=== PATIENT | male | born 1960 | race Caucasian/White ===

== ENCOUNTER 2017-01-10 10:42 | Observation (INO) | payer MEDICARE, MEDICAID, OTHER ==
[2017-01-10] MEDS ORDERED: Aspirin 81 MG Tab.Chew PO ONE (10:48)
[2017-01-10] MEDS ORDERED: Sodium Chloride 0.9% 10 ML Syringe FLUSH PRN (10:50)
[2017-01-10] MEDS: Nitroglycerin 0.4 MG Tab.SL SL PRN ×2 (10:59→11:09)
--- NOTE | 2017-01-10 11:16 | EDM.PDOC ---
ED HPI GENERAL MEDICAL PROBLEM - General Chief Complaint: Chest Pain Stated Complaint: chest pain Time Seen by Provider: 01/10/17 11:00 Source of Information: Reports: Patient History Limitations: Reports: No Limitations - History of Present Illness INITIAL COMMENTS - FREE TEXT/NARRATIVE: The patient presents with complaint of substernal chest pain to the left of midline that began at about 10:00 AM this morning. He reports it is aching and pressure-like and he rates it at 10/10 on arrival in the ER and states it radiates to the jaw as well. He denies shortness of breath, orthopnea, and pleuritic pain. He denies a history of NC, PE, and DVT. He is a smoker and has smoked 1/2 ppd for 30+ years (15+ pack-years). He denies other symptoms or complaints. Patient notes for the past few months he has been having chest pain about 3 times weekly similar to this but not as severe and has lasted from a few minutes to a few hours. Mid-Sternal Chest Pain Score (Numeric/FACES): 7 - Related Data Allergies Allergy/AdvReac Type Severity Reaction Status Date / Time No Known Allergies Allergy Verified 01/10/17 10:50 Home Meds: Home Meds Naproxen 1 tab PO DAILY 01/10/17 [History] Past Medical History Cardiovascular History: Reports: High Cholesterol, Hypertension Genitourinary History: Reports: Renal Calculus (x 3 on the left.) Endocrine/Metabolic History: Reports: Diabetes, Type II (Reports he had history of Type 2 Diabetes which he reports has resolved with diet and exercise.) Social & Family History - Tobacco Use Smoking Status *Q: Current Every Day Smoker Years of Tobacco use: 30 Packs/Tins Daily: 0.5 ED ROS GENERAL - Review of Systems Review Of Systems: ROS reveals no pertinent complaints other than HPI. ED EXAM, GENERAL - Physical Exam Exam: See Below Exam Limited By: No Limitations General Appearance: Alert, WD/WN, No Apparent Distress Eye Exam: Bilateral Eye: EOMI, Normal Fundi, Normal Inspection, PERRL Ears: Normal External Exam, Normal Canal, Hearing Grossly Normal, Normal TMs Ear Exam: Bilateral Ear: Auricle Normal, Canal Normal, TM normal Nose: Normal Inspection, Normal Mucosa, No Blood Throat/Mouth: Normal Inspection, Normal Lips, Normal Teeth, Normal Gums, Normal Oropharynx, Normal Voice, No Airway Compromise Head: Atraumatic, Normocephalic Neck: Normal Inspection, Supple, Non-Tender. No: Lymphadenopathy (L), Lymphadenopathy (R) Respiratory/Chest: No Respiratory Distress, Lungs Clear, Normal Breath Sounds, No Accessory Muscle Use, Chest Non-Tender Cardiovascular: Normal Peripheral Pulses, Regular Rate, Rhythm, No Edema, No Gallop, No Murmur, No Rub Peripheral Pulses: 2+: Radial (L), Radial (R), Posterior Tibial (L), Posterior Tibial (R), Dorsalis Pedis (L), Dorsalis Pedis (R) GI/Abdominal: Normal Bowel Sounds, Soft, Non-Tender, No Organomegaly, No Distention Back Exam: Normal Inspection, Full Range of Motion. No: CVA Tenderness (L), CVA Tenderness (R), Paraspinal Tenderness, Vertebral Tenderness Extremities: Normal Inspection, Normal Range of Motion, Non-Tender, No Pedal Edema, Normal Capillary Refill Neurological: Alert, Oriented, CN II-XII Intact, Normal Cognition, Normal Gait, Normal Reflexes, No Motor/Sensory Deficits Psychiatric: Normal Affect, Normal Mood Skin Exam: Warm, Dry, Intact, Normal Color, No Rash Lymphatic: No Adenopathy EKG INTERPRETATION EKG Date: 01/10/17 Time: 10:43 Rhythm: NSR Rate (beats/min): 84 [place]: normal P-wave: present QRS: normal ST-T: other (No ST elevation. T wave inversions in V1.) QT: normal Comparison: NA - no prior EKG Course - Vital Signs Last Recorded V/S: Last Vital Signs Temp 36.9 C 01/10/17 10:45 Pulse 85 01/10/17 11:08 Resp 14 01/10/17 11:08 BP 120/83 01/10/17 11:09 Pulse Ox 99 01/10/17 11:08 - Orders/Labs/Meds Orders: Active Orders 24 hr Category Date Time Status EKG Documentation Completion [RC] ASDIRECTED Care 01/10/17 10:50 Active EKG Documentation Completion [RC] ASDIRECTED Care 01/10/17 11:20 Active Chest 1V Frontal [CR] Stat Exams 01/10/17 10:50 Taken Sodium Chloride 0.9% [Normal Saline] 500 ml Med 01/10/17 11:45 Ordered IV ASDIRECTED Sodium Chloride 0.9% [Saline Flush] Med 01/10/17 10:50 Active 10 ml FLUSH ASDIRECTED PRN Saline Lock Insert [OM.PC] Routine Oth 01/10/17 10:50 Ordered Medication Orders Sodium Chloride (Normal Saline) 500 mls @ 150 mls/hr IV ASDIRECTED RENETTA Sodium Chloride (Saline Flush) 10 ml FLUSH ASDIRECTED PRN PRN Reason: Keep Vein Open Labs: Laboratory Tests 01/10/17 01/10/17 Range/Units 10:50 10:50 WBC 5.9 (4.0-10.2) K/uL RBC 4.80 (4.33-5.41) M/uL Hgb 16.3 (13.1-16.8) g/dL Hct 46.2 (39.0-49.0) % MCV 96.3 (84.0-98.0) fL MCH 34.0 H (28.2-33.3) pg MCHC 35.3 (31.7-36.0) g/dL RDW 12.7 (11.2-14.1) % Plt Count 223 (150-350) K/uL Neut % (Auto) 65.4 (45.0-80.0) % Lymph % (Auto) 25.3 (10.0-50.0) % [place] % (Auto) 7.6 (2.0-14.0) % Eos % (Auto) 1.2 (0.0-5.0) % Baso % (Auto) 0.5 (0.0-2.0) % Neut # (Auto) 3.85 (1.40-7.00) K/uL Lymph # (Auto) 1.49 (0.50-3.50) K/uL [place] # (Auto) 0.45 (0.00-1.00) K/uL Eos # (Auto) 0.07 (0.00-0.50) K/uL Baso # (Auto) 0.03 (0.00-0.20) K/uL Sodium 139 (136-145) mmol/L Potassium 3.9 (3.5-5.1) mmol/L Chloride 104 (98-107) mmol/L Carbon Dioxide 27.2 (21.0-32.0) mmol/L BUN 10 (7-18) mg/dL Creatinine 1.10 (0.51-1.17) mg/dL Est Cr Clr Drug Dosing 76.77 mL/min Estimated GFR (MDRD) > 60 mL/min Glucose 101 (74-106) mg/dL Calcium 8.0 L (8.5-10.1) mg/dL Total Bilirubin 0.4 (0.2-1.0) mg/dL AST 32 (15-37) U/L ALT 35 (12-78) U/L Alkaline Phosphatase 62 (46-116) IU/L Creatine Kinase 339 H (26-308) U/L Troponin I 0.000 (0.000-0.056) ng/mL [id number] Pept 27 (0-125) pg/mL Total Protein 6.6 (6.4-8.2) g/dL Albumin 3.4 (3.4-5.0) g/dL Meds: Medications Generic Name Dose Route Start Last Admin Trade Name Freq PRN Reason Stop Dose Admin Sodium Chloride 500 mls @ 150 mls/hr 01/10/17 11:45 Normal Saline IV ASDIRECTED RENETTA Sodium Chloride 10 ml 01/10/17 10:50 Saline Flush FLUSH ASDIRECTED PRN Keep Vein Open Discontinued Medications Generic Name Dose Route Start Last Admin Trade Name Freq PRN Reason Stop Dose Admin Aspirin 324 mg 01/10/17 10:48 01/10/17 10:58 Aspirin PO 01/10/17 10:49 324 mg ONETIME ONE Administration Calcium Gluconate 1 gm 01/10/17 11:37 Calcium Gluconate IV 01/10/17 11:38 ONETIME ONE Nitroglycerin 0.4 mg 01/10/17 10:49 01/10/17 11:09 Nitrostat SL 01/10/17 11:00 0.4 mg Q5M PRN Administration Chest Pain - Radiology Interpretation Free Text/Narrative:: CXR negative. No consolidation or infiltrates. No pneumothorax. No effusions. No widening of mediastinum or cardiac silhouette. - Re-Assessments/Exams Free Text/Narrative Re-Assessment/Exam: 01/10/17 11:20 Patient reports pain has diminished significantly down to 6/10 after 2 doses of nitroglycerin. Departure - Departure Time of Disposition: 11:43 Disposition: Refer to Observation Clinical Impression: Hypocalcemia Chest pain Qualifiers: Chest pain type: unspecified Qualified Code(s): R07.9 - Chest pain, unspecified Referrals: PCP,Unknown [Ordering Only Provider] - Forms: ED Department Discharge - My Orders Last 24 Hours: My Active Orders 01/10/17 10:50 EKG Documentation Completion [RC] ASDIRECTED Chest 1V Frontal [CR] Stat Sodium Chloride 0.9% [Saline Flush] 10 ml FLUSH ASDIRECTED PRN Saline Lock Insert [OM.PC] Routine 01/10/17 11:20 EKG Documentation Completion [RC] ASDIRECTED 01/10/17 11:45 Sodium Chloride 0.9% [Normal Saline] 500 ml IV ASDIRECTED - Assessment/Plan Last 24 Hours: My Active Orders 01/10/17 10:50 EKG Documentation Completion [RC] ASDIRECTED Chest 1V Frontal [CR] Stat Sodium Chloride 0.9% [Saline Flush] 10 ml FLUSH ASDIRECTED PRN Saline Lock Insert [OM.PC] Routine 01/10/17 11:20 EKG Documentation Completion [RC] ASDIRECTED 01/10/17 11:45 Sodium Chloride 0.9% [Normal Saline] 500 ml IV ASDIRECTED Assessment:: Chest pain. Hypocalcemia. Plan: 1. Given aspirin 324 mg PO on arrival in the ER. 2. Given nitroglycerin 0.4 mg SL x 2 in ER with significant improvement in chest pain. 3. EKG no ST elevation. T wave inversions in V1 and no previous EKG for comparison. 4. CXR normal. 5. Initial cardiac enzymes negative. 6. Admit for observation with telemetry and pulse oximetry. 7. NS at 150 mL/hour. 8. Calcium gluconate 1 gram IV over 1 hour for hypocalcemia. 9. LUIS M hose, SCD's, and Lovenox for DVT prophylaxis. 10. Incentive spirometer for pneumonia prophylaxis.
[2017-01-10 11:19] LABS: CHLORIDE,CL 104 mmol/L (98-107); SODIUM,NA 139 mmol/L (136-145)
[2017-01-10] MEDS ORDERED: Calcium Gluconate 10% 1 GM/10 ML SDV IV ONE (11:37)
[2017-01-10] MEDS ORDERED: Sodium Chloride 0.9% 500 ML IV SCH (11:45)
[2017-01-10] MEDS ORDERED: Calcium Gluconate 1 GM in Sodium Chloride 0.9% 100 ML IV ONE ×2 (12:06→14:12)
--- NOTE | 2017-01-10 12:10 | PCM.HPR ---
H & P Addendum review - H & P Addendum Review Date of Original H & P: 01/10/17 Date Reviewed: 01/10/17 Time Reviewed: 12:00 Patient was examined: No Changes Please note any Changes: Please see ER Note for Admission History and Physical.
[2017-01-10] MEDS ORDERED: Sodium Chloride 0.9% 1,000 ML IV SCH (12:15)
[2017-01-10] MEDS ORDERED: Acetaminophen 325 MG Tab PO PRN (14:00)
[2017-01-10] MEDS ORDERED: LORazepam 1 MG Tab PO PRN (14:00)
[2017-01-10] MEDS ORDERED: Nicotine 14 MG/24 Hr Patch TRDERM SCH (14:15)
[2017-01-10 18:52] VITALS: BP 121/63
--- NOTE | 2017-01-10 21:42 | PCM.DCSUM1 ---
Discharge Summary - Hospital Course Free Text/Narrative:: Admitted from ER on 01/10/2017 with chest pain and had improvement with sublingual nitroglycerin. No ST elevation or depressions on EKG or telemetry. Chest pain resolved and no further chest pain on admission. Will discharge with prescription for nitroglycerin and instruct patient to take 81 mg aspirin daily. Will followup with PCP ELKIN for cardiac stress testing, lipid panel, and cardiac risk stratification. Instructed to call 911 or return to ER with refractory chest pain, shortness of breath, mental status changes, or other emergent concerns. - Discharge Data Discharge Date: 01/10/17 Discharge Disposition: Home, Self-Care 01 Condition: Good - Discharge Diagnosis/Problem(s) (1) Angina pectoris SNOMED Code(s): 395814894 ICD Code: I20.9 - ANGINA PECTORIS, UNSPECIFIED Status: Acute Priority: High Current Visit: Yes Problem Details: Chest pain resolved with sublingual nitroglycerin and no further chest pain during admission. (2) Hypocalcemia SNOMED Code(s): 4689634 ICD Code: E83.51 - HYPOCALCEMIA Status: Acute Priority: High Current Visit: Yes Problem Details: Given calcium gluconate 1 gram IV during admission. - Patient Instructions Diet: Heart Healthy Diet Activity: No Strenuous Activities Driving: Do Not Drive Showering/Bathing: December Shower Notify Provider of: Increased Pain - Discharge Plan Prescriptions/Med Rec: Nitroglycerin [Nitrostat] 0.4 mg SL ASDIRECTED PRN #20 tab.subl PRN Reason: Chest Pain Home Medications: Home Meds Naproxen 1 tab PO DAILY 01/10/17 [History] Nitroglycerin [Nitrostat] 0.4 mg SL ASDIRECTED PRN #20 tab.subl 01/10/17 [Rx] Patient Handouts: Nonspecific Chest Pain, Nitroglycerin sublingual tablets, Lorazepam tablets, Nicotine skin patches Forms: ED Department Discharge Referrals: PCP,Unknown [Ordering Only Provider] - - Discharge Summary/Plan Comment DC Time >30 min.: No - General Info Date of Service: 01/10/17 Admission Dx/Problem (Free Text: Chest Pain Functional Status: Reports: pain controlled - Review of Systems General: Reports: No Symptoms HEENT: Reports: no symptoms Pulmonary: Reports: no symptoms Cardiovascular: Reports: No Symptoms Gastrointestinal: Reports: No symptoms Genitourinary: Reports: no symptoms Musculoskeletal: Reports: no symptoms Skin: Reports: no symptoms Neurological: Reports: No Symptoms Psychiatric: Reports: no symptoms - Patient Data Vitals - Most Recent: Last Vital Signs Temp 37.4 C 01/10/17 18:51 Pulse 89 01/10/17 18:51 Resp 19 01/10/17 18:51 BP 121/63 01/10/17 18:51 Pulse Ox 96 01/10/17 18:51 Weight - Most Recent: 85.956 kg I&O - Last 24 hours: Intake & Output 01/10/17 01/10/17 01/10/17 06:59 14:59 22:59 Intake Total 240 480 Balance 240 480 Lab Results - Last 24 hrs: Laboratory Results - last 24 hr 01/10/17 01/10/17 01/10/17 Range/Units 15:00 15:00 21:00 Creatine Kinase 289 225 (26-308) U/L Troponin I 0.000 (0.000-0.056) ng/mL 01/10/17 Range/Units 21:00 Creatine Kinase (26-308) U/L Troponin I 0.000 (0.000-0.056) ng/mL Med Orders - Current: Current Medications Acetaminophen (Tylenol) 650 mg PO Q4H PRN PRN Reason: Pain/Fever Last Admin: 01/10/17 14:40 Dose: 650 mg Sodium Chloride (Normal Saline) 1,000 mls @ 100 mls/hr IV ASDIRECTED [facility] Last Admin: 01/10/17 13:55 Dose: 100 mls/hr Lorazepam (Ativan) 1 mg PO Q6H PRN PRN Reason: anxiety/aggitation Last Admin: 01/10/17 14:40 Dose: 1 mg Miscellaneous Information (Remove Patch) 1 ea TRDERM DAILY [facility] Nicotine (Habitrol) 14 mg TRDERM DAILY [facility] Last Admin: 01/10/17 14:38 Dose: 14 mg Sodium Chloride (Saline Flush) 10 ml FLUSH ASDIRECTED PRN PRN Reason: Keep Vein Open Discontinued Medications Aspirin (Aspirin) 324 mg PO ONETIME ONE Stop: 01/10/17 10:49 Last Admin: 01/10/17 10:58 Dose: 324 mg Calcium Gluconate (Calcium Gluconate) 1 gm IV ONETIME ONE Stop: 01/10/17 11:38 Last Admin: 01/10/17 12:00 Dose: Not Given Calcium Gluconate 1 gm/ Sodium (Chloride) 110 mls @ 100 mls/hr IV ONETIME ONE Stop: 01/10/17 13:11 Calcium Gluconate 1 gm/ Sodium (Chloride) 110 mls @ 100 mls/hr IV ONETIME ONE Stop: 01/10/17 15:17 Last Admin: 01/10/17 14:41 Dose: 100 mls/hr Nitroglycerin (Nitrostat) 0.4 mg SL Q5M PRN PRN Reason: Chest Pain Stop: 01/10/17 11:00 Last Admin: 01/10/17 11:09 Dose: 0.4 mg - Exam General: Reports: alert, oriented HEENT: Reports: Pupils equal, Pupils reactive, EOMI, Mucous membr. moist/pink Lungs: Reports: Clear to auscultation, Normal respiratory effort Cardiovascular: Reports: Regular Rate, Regular Rhythm Abdomen: Reports: bowel sounds present, soft, no tenderness, no distension Extremities: Reports: no edema, normal pulses, no clubbing, no cyanosis Skin: Reports: warm, dry, intact Neurological: Reports: no new focal deficit *Q Meaningful Use (DIS) - VTE *Q VTE Criteria *Q: - Stroke *Q Stroke Criteria *Q: - AMI *Q AMI Criteria *Q:
[2017-01-11] MEDS ORDERED: REMOVAL NICOTINE TRDERM SCH (08:00)
== END 2017-01-10 22:00 | disposition home or self-care (01) ==
LOC: LL.ED 10:42 → LL.MS 11:44
PROVIDERS: ADMIT Surgery; ATTEND Surgery
DX: I20.9 Angina pectoris, unspecified (principal); E83.51 Hypocalcemia; I10 Essential (primary) hypertension; E78.00 Pure hypercholesterolemia, unspecified; E11.9 Type 2 diabetes mellitus without complications; F17.210 Nicotine dependence, cigarettes, uncomplicated; Z79.899 Other long term (current) drug therapy
CPT/HCPCS: 36000; 36415; 71010; 80053; 82550; 83880; 84484; 85025; 93005; 96374; 99285; A9270; G0378; J0610; J7030; J7050

== ENCOUNTER 2017-01-14 11:24 | Emergency (ER) | payer MEDICARE, MEDICAID ==
[2017-01-14 11:27] VITALS: BP 148/106
[2017-01-14 12:29] LABS: CHLORIDE,CL 98 mmol/L (98-107); SODIUM,NA 136 mmol/L (136-145)
[2017-01-14] MEDS ORDERED: Ketorolac 60 MG/2 ML SDV IM ONE (12:39)
[2017-01-14] MEDS ORDERED: Tamsulosin 0.4 MG Cap.ER PO ONE (12:39)
[2017-01-14] MEDS ORDERED: Ondansetron 4 MG Tab.DIS PO ONE (12:49)
--- NOTE | 2017-01-14 12:53 | EDM.PDOC ---
ED HPI GENERAL MEDICAL PROBLEM - General Chief Complaint: General Stated Complaint: Left flank pain and blood in urine Time Seen by Provider: 01/14/17 12:11 Source of Information: Reports: Patient History Limitations: Reports: No Limitations - History of Present Illness INITIAL COMMENTS - FREE TEXT/NARRATIVE: Patient comes to ER for complaint of hematuria, urgency, frequency, and flank discomfort. Described strands of clotted blood in urine at around 3am. Had exact same symptoms years ago when he had kidney stone. That stone was around 1cm and required lithotripsy. Denies fevers/chills. Denies nausea/emesis/bowel changes. Denies chest pain/CV complaints/Resp complaints. Patient was recently admitted for chest pain workup. Has no other complaints during ROS. Pain described as left flank, sometimes radiating around left side, intermittently involving penis when he is actually urinating. He is not aware of passing any stones in last 24 hours. He has not arranged recommended follow up with his clinic for continuation of evaluation of chest pain complaint that he had previously. He denies any recurrence. Has not filled his Nitroglycerin Rx as he doesn't like how it gives him a headache. Says that he has been diagnosed in past as being diabetic. States via diet change he normalized blood sugars. Says he avoids sugar/ processed food and carbs/processed beverages. Says he uses alcohol 1-2 times a week. Does smell like ETOH. 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 Sciatica Neurological History: Reports: Headaches, Chronic Psychiatric History: Reports: Anxiety Endocrine/Metabolic History: Reports: Diabetes, Type II - Infectious Disease History Infectious Disease History: Reports: Chicken Pox - Past Surgical History Musculoskeletal Surgical History: Reports: Other (See Below) Other Musculoskeletal Surgeries/Procedures:: Ring finger on right hand surgically repair after fx. Social & Family History - Tobacco Use Smoking Status *Q: Current Every Day Smoker Years of Tobacco use: 25 Packs/Tins Daily: 1 - Caffeine Use Caffeine Use: Reports: None - Alcohol Use Alcohol Use History: Yes Days Per Week of Alcohol Use: 2 Days Per Week of Alcohol Use Comment: Patient says he does not use ETOH often. Maybe 1-2 times a week. Does not give quantity of ETOH usually consumed. ED ROS GENERAL - Review of Systems Review Of Systems: See Below Constitutional: Reports: No Symptoms HEENT: Reports: No Symptoms Respiratory: Reports: No Symptoms Cardiovascular: Reports: No Symptoms GI/Abdominal: Reports: No Symptoms. Denies: Abdominal Pain, Constipation, Decreased Appetite, Distension, Hematemesis, Hematochezia, Nausea, Vomiting : Reports: Flank Pain, Frequency, Hematuria, Pain, Urgency. Denies: Incontinence, Urinary Retention Musculoskeletal: Reports: No Symptoms Skin: Reports: No Symptoms Neurological: Reports: No Symptoms Psychiatric: Reports: No Symptoms ED EXAM, GENERAL - Physical Exam Exam: See Below Exam Limited By: No Limitations General Appearance: Alert, WD/WN, No Apparent Distress, Other (smells of ETOH) Eye Exam: Bilateral Eye: EOMI, PERRL Ears: Normal External Exam Nose: Normal Inspection Throat/Mouth: Normal Lips, Normal Voice, No Airway Compromise Head: Atraumatic, Normocephalic Neck: Normal Inspection, Supple, Non-Tender, Full Range of Motion Respiratory/Chest: No Respiratory Distress, Lungs Clear, Normal Breath Sounds, No Accessory Muscle Use, Chest Non-Tender Cardiovascular: Normal Peripheral Pulses, Regular Rate, Rhythm, No Edema, No Murmur GI/Abdominal: Normal Bowel Sounds, Soft, Other (mild discomfort with palpation over bladder. ). No: Guarding, Rigid, Rebound Back Exam: CVA Tenderness (L). No: CVA Tenderness (R), Decreased Range of Motion, Muscle Spasm, Paraspinal Tenderness, Vertebral Tenderness Extremities: Normal Inspection, Normal Capillary Refill Neurological: Alert, Oriented, Normal Cognition, Normal Gait, Slow to Respond Psychiatric: Normal Affect, Normal Mood Skin Exam: Warm, Dry, Intact, Normal Color Course - Vital Signs Last Recorded V/S: Last Vital Signs Temp 37.1 C 01/14/17 11:26 Pulse 109 H 01/14/17 11:26 Resp 18 01/14/17 11:26 BP 148/106 H 01/14/17 11:26 Pulse Ox 99 01/14/17 11:26 - Orders/Labs/Meds Orders: Active Orders 24 hr Category Date Time Status Abdomen Pelvis wo Cont [CT] Stat Exams 01/14/17 11:43 Ordered Labs: Laboratory Tests 01/14/17 01/14/17 01/14/17 Range/Units 11:40 11:41 12:10 WBC 7.9 (4.0-10.2) K/uL RBC 4.92 (4.33-5.41) M/uL Hgb 16.8 (13.1-16.8) g/dL Hct 46.3 (39.0-49.0) % MCV 94.1 (84.0-98.0) fL MCH 34.1 H (28.2-33.3) pg MCHC 36.3 H (31.7-36.0) g/dL RDW 12.5 (11.2-14.1) % Plt Count 258 (150-350) K/uL Neut % (Auto) 80.2 H (45.0-80.0) % Lymph % (Auto) 13.1 (10.0-50.0) % [place] % (Auto) 5.8 (2.0-14.0) % Eos % (Auto) 0.3 (0.0-5.0) % Baso % (Auto) 0.6 (0.0-2.0) % Neut # (Auto) 6.37 (1.40-7.00) K/uL Lymph # (Auto) 1.04 (0.50-3.50) K/uL [place] # (Auto) 0.46 (0.00-1.00) K/uL Eos # (Auto) 0.02 (0.00-0.50) K/uL Baso # (Auto) 0.05 (0.00-0.20) K/uL PT 10.4 (9.8-11.7) SEC INR 1.0 APTT 27.5 (23.5-30.0) SEC Sodium 136 (136-145) mmol/L Potassium 3.5 (3.5-5.1) mmol/L Chloride 98 (98-107) mmol/L Carbon Dioxide 23.8 (21.0-32.0) mmol/L BUN 8 (7-18) mg/dL Creatinine 0.99 (0.51-1.17) mg/dL Est Cr Clr Drug Dosing 85.30 mL/min Estimated GFR (MDRD) > 60 mL/min Glucose 113 H (74-106) mg/dL Calcium 8.3 L (8.5-10.1) mg/dL Total Bilirubin 0.4 (0.2-1.0) mg/dL AST 36 (15-37) U/L ALT 37 (12-78) U/L Alkaline Phosphatase 77 (46-116) IU/L Total Protein 7.4 (6.4-8.2) g/dL Albumin 3.8 (3.4-5.0) g/dL Specimen Type Urine Color Urine Appearance Urine pH (5.0-9.0) Ur Specific [place] (1.005-1.030) Urine Protein (NEGATIVE) mg/dL Urine Glucose (UA) (NEGATIVE) mg/dL Urine Ketones (NEGATIVE) mg/dL Urine Occult Blood (NEGATIVE) Urine Nitrite (NEGATIVE) Urine Bilirubin (NEGATIVE) Urine Urobilinogen (0.2-1.0) E.U./dL Ur Leukocyte Esterase (NEGATIVE) Urine RBC /HPF Urine WBC /HPF Ur Epithelial Cells /LPF Urine Bacteria (NONE TO FEW) /HPF Ethyl Alcohol (0.000-0.080) g/dL 01/14/17 01/14/17 Range/Units 12:10 12:10 WBC (4.0-10.2) K/uL RBC (4.33-5.41) M/uL Hgb (13.1-16.8) g/dL Hct (39.0-49.0) % MCV (84.0-98.0) fL MCH (28.2-33.3) pg MCHC (31.7-36.0) g/dL RDW (11.2-14.1) % Plt Count (150-350) K/uL Neut % (Auto) (45.0-80.0) % Lymph % (Auto) (10.0-50.0) % [place] % (Auto) (2.0-14.0) % Eos % (Auto) (0.0-5.0) % Baso % (Auto) (0.0-2.0) % Neut # (Auto) (1.40-7.00) K/uL Lymph # (Auto) (0.50-3.50) K/uL [place] # (Auto) (0.00-1.00) K/uL Eos # (Auto) (0.00-0.50) K/uL Baso # (Auto) (0.00-0.20) K/uL PT (9.8-11.7) SEC INR APTT (23.5-30.0) SEC Sodium (136-145) mmol/L Potassium (3.5-5.1) mmol/L Chloride (98-107) mmol/L Carbon Dioxide (21.0-32.0) mmol/L BUN (7-18) mg/dL Creatinine (0.51-1.17) mg/dL Est Cr Clr Drug Dosing mL/min Estimated GFR (MDRD) mL/min Glucose (74-106) mg/dL Calcium (8.5-10.1) mg/dL Total Bilirubin (0.2-1.0) mg/dL AST (15-37) U/L ALT (12-78) U/L Alkaline Phosphatase (46-116) IU/L Total Protein (6.4-8.2) g/dL Albumin (3.4-5.0) g/dL Specimen Type Urinvoid Urine Color Yellow Urine Appearance Clear Urine pH 5.5 (5.0-9.0) Ur Specific [place] <= 1.005 (1.005-1.030) Urine Protein Negative (NEGATIVE) mg/dL Urine Glucose (UA) Negative (NEGATIVE) mg/dL Urine Ketones Negative (NEGATIVE) mg/dL Urine Occult Blood Small H (NEGATIVE) Urine Nitrite Negative (NEGATIVE) Urine Bilirubin Negative (NEGATIVE) Urine Urobilinogen 0.2 (0.2-1.0) E.U./dL Ur Leukocyte Esterase Negative (NEGATIVE) Urine RBC 0-5 /HPF Urine WBC Not seen /HPF Ur Epithelial Cells Not seen /LPF Urine Bacteria Not seen (NONE TO FEW) /HPF Ethyl Alcohol 0.144 H (0.000-0.080) g/dL Meds: Medications Discontinued Medications Generic Name Dose Route Start Last Admin Trade Name Freq PRN Reason Stop Dose Admin Ketorolac Tromethamine 60 mg 01/14/17 12:39 01/14/17 12:54 Toradol IM 01/14/17 12:40 60 mg ONETIME ONE Administration Ondansetron HCl 4 mg 01/14/17 12:49 01/14/17 12:54 Zofran Odt PO 01/14/17 12:50 4 mg ONETIME ONE Administration Tamsulosin HCl 0.4 mg 01/14/17 12:39 01/14/17 12:54 Flomax PO 01/14/17 12:40 0.4 mg ONETIME ONE Administration - Radiology Interpretation Free Text/Narrative:: CT of abdomen read by Radiology. 3mm stone noted lower pole left kidney with mild hydroneprosis on same side. Enlarged prostate. No stranding in ureter. No obstructing stone noted. - Re-Assessments/Exams Free Text/Narrative Re-Assessment/Exam: 01/14/17 13:39 CBC and Chem overall unremarkable. UA showed 0-5RBC. WBC normal. Unremarkable overall. ETOH elevated at 0.14 Suspect ETOH mis-use as patient did not report use of ETOH within last 24 hours and minimized history of use during history. No outward signs/behavioral changes suggestive of intoxication noted during stay. Patient may have passed stone a stone prior to arriving to ER. Hematuria has resolved. He was feeling better while in ER and looked perfectly comfortable. He did not need to urinate at all during time spent in ER other than when we requested UA sample. Stone noted on CT still within kidney and unlikely to be cause of symptoms but cannot rule out possible contribution to symptoms. No evidence if UTI. ETOH may also be contributing to patient complaints. He did receive dose of Flomax/Toradol/Zofran while in ER. Plan at this time is conservative. He can use PRN Toradol (bottle of 10 given from ER stock) to help with discomfort. He is to continue to drink water and remain hydrated. He is to watch for symptoms changes such as continued improvement or sudden worsening. Patient can follow up in the ER if he has sudden worsening problems. Otherwise he is to follow up with [facility] Monday or Monday. Extensive amount of time spent discussing recent chest pain complaint, hypertension, enlarged prostate, hydronephrosis, and hematuria as well as risks of not following up for all of these. Patient said he would make appointment to follow up for all of these concerns this week. Departure - Departure Time of Disposition: 13:00 Disposition: Home, Self-Care 01 Condition: good Clinical Impression: Hematuria, Enlarged prostate, Non-compliance, Left nephrolithiasis Hypertension Qualifiers: Hypertension type: essential hypertension Qualified Code(s): I10 - Essential ( primary) hypertension Elevated ETOH level Qualifiers: Blood alcohol level: level not specified Qualified Code(s): R78.0 - Finding of alcohol in blood - Discharge Information Prescriptions: Tamsulosin [Flomax] 0.4 mg PO PCBREAKFAST #14 cap.er Instructions: Kidney Stones, Ketorolac injection, Renal Colic, [id number], Kidney Stones, [id number], Tamsulosin capsules, Hematuria, Adult Referrals: Araceli Aguillon PA [Primary Care Provider] - Forms: ED Department Discharge Additional Instructions: FOLLOW UP at [facility] THIS WEEK. You need to continue your chest pain workup which will likely include a stress test. This is VERY IMPORTANT as it helps us decide if the chest pain you had last week is related to your heart. STOP SMOKING. Smoking contributes to heart and lung disease risks as well as a host of other problems. If flank pain and hematuria continue you will need to see a Urologist. The clinic can refer you for this as well as your prostate. You have a very large prostate that is to the point where it could potentially cause obstruction as far as your kidneys are concerned. Urology can look into this. Your left kidney has mild hydronephrosis which may indicate obstruction. Fill your prescription for the Nitroglycerin tablets. Yes they can cause headaches, but they usually help if you have chest pain related to coronary artery disease. Your blood pressure is elevated. If this continues then you will need to be put on medication. Elevated blood pressure leads to heart disease, increased risk of stroke, kidney disease, and other problems. - My Orders Last 24 Hours: My Active Orders 01/14/17 11:43 Abdomen Pelvis wo Cont [CT] Stat - Assessment/Plan Last 24 Hours: My Active Orders 01/14/17 11:43 Abdomen Pelvis wo Cont [CT] Stat
== END 2017-01-14 13:25 | disposition home or self-care (01) ==
LOC: LL.ED 11:24
DX: N40.1 Benign prostatic hyperplasia with lower urinary tract symptoms (principal); R31.9 Hematuria, unspecified; R78.0 Finding of alcohol in blood; E78.00 Pure hypercholesterolemia, unspecified; I10 Essential (primary) hypertension; F41.9 Anxiety disorder, unspecified; E11.9 Type 2 diabetes mellitus without complications; F17.210 Nicotine dependence, cigarettes, uncomplicated; N20.0 Calculus of kidney
CPT/HCPCS: 36415; 74176; 80053; 81001; 85025; 85610; 85730; 96372; 99284; A9270; G0480; J1885; 99283

== ENCOUNTER 2017-04-13 09:42 | Emergency (ER) | payer MEDICARE, MEDICAID, OTHER, SELFPAY ==
--- NOTE | 2017-04-13 10:14 | EDM.PDOC ---
ED HPI GENERAL MEDICAL PROBLEM - General Chief Complaint: Behavioral/Psych Stated Complaint: etoh, thoughts of harming self Time Seen by Provider: 04/13/17 09:45 Source of Information: Reports: Patient History Limitations: Reports: No Limitations - History of Present Illness INITIAL COMMENTS - FREE TEXT/NARRATIVE: Patient is a 56-year-old who present to the ER with chief complaint alcohol intoxication patient states that she's been drinking for the last 10 days and overnight drank about a quart of alcohol complains of chills and shakes states that he has rectal bleeding and his stomach is upset Onset: Gradual Duration: Day(s):, Getting Worse, Heavy (Heavy alcohol use) Location: Reports: Generalized Quality: Reports: Ache Severity: Severe Improves with: Reports: None Context: Reports: Sick Contact Associated Symptoms: Reports: Loss of Appetite, Malaise, Nausea/Vomiting Generalized Pain Score (Numeric/FACES): 8 - Related Data Allergies Allergy/AdvReac Type Severity Reaction Status Date / Time No Known Allergies Allergy Verified 04/13/17 09:45 Home Meds: Home Meds Naproxen Sodium [Aleve] 2 tab PO ASDIRECTED 04/13/17 [History] Past Medical History Cardiovascular History: Reports: High Cholesterol, Hypertension Genitourinary History: Reports: Renal Calculus Musculoskeletal History: Reports: Fracture, Other (See Below) Other Musculoskeletal History: Broken right hand x 2. Sciatica Neurological History: Reports: Headaches, Chronic Psychiatric History: Reports: Anxiety Endocrine/Metabolic History: Reports: Diabetes, Type II - Infectious Disease History Infectious Disease History: Reports: Chicken Pox - Past Surgical History Musculoskeletal Surgical History: Reports: Other (See Below) Other Musculoskeletal Surgeries/Procedures:: Ring finger on right hand surgically repair after fx. Social & Family History - Tobacco Use Smoking Status *Q: Current Every Day Smoker Years of Tobacco use: 30 Packs/Tins Daily: 0.5 - Caffeine Use Caffeine Use: Reports: None - Alcohol Use Days Per Week of Alcohol Use: 7 Number of Drinks Per Day: 10 Total Drinks Per Week: 70 Date of Last Drink: 04/13/17 Time of Last Drink: 09:15 - Recreational Drug Use Recreational Drug Use: No ED ROS GENERAL - Review of Systems Review Of Systems: See Below Constitutional: Reports: Weakness, Fatigue, Night Sweats, Decreased Appetite, Weight Loss HEENT: Reports: No Symptoms Respiratory: Reports: No Symptoms Cardiovascular: Reports: No Symptoms Endocrine: Reports: Other GI/Abdominal: Reports: Abdominal Pain, Anorexia, Distension Musculoskeletal: Reports: No Symptoms Skin: Reports: No Symptoms ED EXAM, GENERAL - Physical Exam Exam: See Below Exam Limited By: No Limitations General Appearance: Alert, WD/WN, No Apparent Distress Ears: Normal External Exam, Normal Canal, Hearing Grossly Normal, Normal TMs Ear Exam: Bilateral Ear: Auricle Normal, Canal Normal, TM normal Nose: Normal Inspection, Normal Mucosa, No Blood Throat/Mouth: Normal Inspection, Normal Lips, Normal Teeth, Normal Gums, Normal Oropharynx, Normal Voice, No Airway Compromise Head: Atraumatic, Normocephalic Neck: Normal Inspection, Supple, Non-Tender, Full Range of Motion Respiratory/Chest: No Respiratory Distress, Lungs Clear, Normal Breath Sounds, No Accessory Muscle Use, Chest Non-Tender Cardiovascular: Normal Peripheral Pulses, Regular Rate, Rhythm, No Edema, No Gallop, No JVD, No Murmur, No Rub GI/Abdominal: Normal Bowel Sounds, Soft, No Distention Back Exam: Normal Inspection, Full Range of Motion, NT Extremities: Normal Inspection, Normal Range of Motion, Non-Tender, Normal Capillary Refill, No Pedal Edema Neurological: Alert, Oriented, CN II-XII Intact, Normal Cognition, Normal Gait, Normal Reflexes, No Motor/Sensory Deficits Psychiatric: Depressed Mood, Other (patient's suicidal) Skin Exam: Warm, Dry, Intact, Normal Color, No Rash Lymphatic: No Adenopathy Course - Vital Signs Last Recorded V/S: Last Vital Signs Temp 98.8 F 04/13/17 09:47 Pulse 110 H 04/13/17 09:47 Resp 18 04/13/17 09:47 BP 147/78 H 04/13/17 09:47 Pulse Ox 98 04/13/17 09:47 - Orders/Labs/Meds Orders: Active Orders 24 hr Category Date Time Status CBC WITH AUTO DIFF [HEME] Stat Lab 04/13/17 10:04 Ordered CMP [COMPREHENSIVE METABOLIC PN,CMP] [CHEM] Stat Lab 04/13/17 10:05 Ordered DRUG SCREEN, URINE [URCHEM] Stat Lab 04/13/17 10:07 Uncollected ETOH [ETHANOL BLOOD MEDICAL] [CHEM] Stat Lab 04/13/17 10:05 Ordered Departure - Departure Time of Disposition: 11:29 Disposition: DC/Tfer to Acute Hospital 02 Condition: Poor Clinical Impression: Alcohol abuse - Discharge Information Forms: ED Department Discharge - Problem List Review Problem List Initiated/Reviewed/Updated: Yes - My Orders Last 24 Hours: My Active Orders 04/13/17 10:04 CBC WITH AUTO DIFF [HEME] Stat 04/13/17 10:05 CMP [COMPREHENSIVE METABOLIC PN,CMP] [CHEM] Stat ETOH [ETHANOL BLOOD MEDICAL] [CHEM] Stat 04/13/17 10:07 DRUG SCREEN, URINE [URCHEM] Stat - Assessment/Plan Last 24 Hours: My Active Orders 04/13/17 10:04 CBC WITH AUTO DIFF [HEME] Stat 04/13/17 10:05 CMP [COMPREHENSIVE METABOLIC PN,CMP] [CHEM] Stat ETOH [ETHANOL BLOOD MEDICAL] [CHEM] Stat 04/13/17 10:07 DRUG SCREEN, URINE [URCHEM] Stat Assessment:: etoh abuse Plan: Patient will be transferred to [facility] for care and detox
[2017-04-13] MEDS ORDERED: Dextrose 5%-0.9% NaCl 1,000 ML IV SCH (10:15)
[2017-04-13] MEDS ORDERED: Thiamine 100 MG Tab PO ONE (10:18)
[2017-04-13] MEDS ORDERED: Folic Acid 1 MG Tab PO ONE (10:19)
[2017-04-13] MEDS ORDERED: chlordiazePOXIDE 25 MG Cap PO ONE ×2 (10:20→10:22)
[2017-04-13] MEDS ORDERED: Pantoprazole 40 MG Vial IVPUSH ONE (10:22)
[2017-04-13] MEDS ORDERED: Sodium Chloride 0.9% 10 ML Syringe FLUSH SCH (10:30)
[2017-04-13 10:33] LABS: CHLORIDE,CL 94 mmol/L (98-107); SODIUM,NA 134 mmol/L (136-145)
[2017-04-13] MEDS ORDERED: Nicotine 21 MG/24 Hr Patch TRDERM ONE (10:35)
[2017-04-13] MEDS ORDERED: Sodium Chloride 0.9% 1,000 ML IV SCH (13:45)
[2017-04-13 14:50] VITALS: BP 135/70
== END 2017-04-13 14:30 ==
LOC: LL.ED 09:42 → SUPCPDRO 09:42 → LL.ED 14:30
DX: F10.129 Alcohol abuse with intoxication, unspecified (principal); E78.00 Pure hypercholesterolemia, unspecified; I10 Essential (primary) hypertension; E11.9 Type 2 diabetes mellitus without complications; F17.210 Nicotine dependence, cigarettes, uncomplicated
CPT/HCPCS: 36415; 80053; 80305; 85025; 93005; 96361; 96374; 99285; A9270; C9113; G0480; J7042; J7050; 99284